=== PATIENT | female | born 1990 | race Hispanic/Latino ===

== ENCOUNTER 2019-03-28 14:27 | Emergency (ER) | payer BC ==
[2019-03-28 15:01] LABS: Bacteria/HPF None Seen HPF (None Seen); Bilirubin Negative (Negative); Blood, Urine Trace (Negative); Clarity Clear (Clear); Glucose, Urine (Dipstick) Normal (Negative); Leukocyte Negative Leu/uL (Negative); Nitrite Negative (Negative); Protein, Urine (Dipstick) Negative (Neg-Trace); RBC/HPF 0-3 HPF (0-3); Urobilinogen Normal mg/dL (Less than 2); WBC/HPF 0-3 HPF (0-3)
[2019-03-28 15:07] LABS: #Eosinphils 0.1 thou/uL (0.0-0.7); #Lymphocytes 1.7 thou/uL (1.20-3.40); #Monocytes 0.4 thou/uL (0.11-0.59); #Neutrophils 5.7 thou/uL (1.40-6.50); %Basophils 0.3 % (0.0-1.0); %Eosinophils 1.1 % (0.0-10.0); %Lymphocytes 21.2 % (21.0-51.0); %Monocytes 4.9 % (0.0-10.0); %Neutrophils 72.6 % (42.0-75.0); Hemoglobin 12.8 g/dL (12.0-16.0); Mean Corpuscular Hemoglobin 31.7 pg (27.0-31.0); Mean Platelet Volume 6.2 fL (7.4-10.4); Platelet Count 364 thou/uL (130-400); RBC Distribution Width 11.8 % (11.5-14.5); Red Blood Cell (RBC) Count 4.04 mill/uL (4.20-5.40); White Blood Cell (WBC) Count 7.9 thou/uL (4.8-10.8)
--- NOTE | 2019-03-28 15:27 | ULT ---
Pelvic ultrasound including transabdominal and endovaginal imaging HISTORY: Pelvic pain. COMPARISON: None. FINDINGS: Real-time imaging of the pelvis was obtained both transabdominally as well as with an endov aginal probe. This shows the presence of an intrauterine gestational sac and pole. Gestational sac measurements are 3.0 cm corresponding to 8 weeks 1 day. [place]-rump length measurement s of 8.6 mm corresponding to 6 weeks 6 days. No movement or heart activity seen. The left ovary is unremarkable. The right ovary is not visualized. Doppler evaluation with spectral analysis normal flow shown to the left adnexa. IMPRESSION: Findings compatible with demise.
[2019-03-28 16:06] LABS: ALT (SGPT) 20 U/L (8-55); AST (SGOT) 20 U/L (5-34); Albumin 4.4 g/dL (3.5-5.0); Alkaline Phosphatase 61 U/L (40-150); Anion Gap 14 mmol/L (10-20); BUN (Urea Nitrogen) 7 mg/dL (7.0-18.7); Bilirubin, Total 0.5 mg/dL (0.2-1.2); Calc. Creatinine Clearance 0 mL/min (70-130); Calcium 10.2 mg/dL (7.8-10.44); Carbon Dioxide 23 mmol/L (22-29); Chloride 103 mmol/L (98-107); Estimated GFR-MDRD Greater than 90; Globulin 3.2 g/dL (2.4-3.5); Glucose 88 mg/dL (70-105); Potassium 4.2 mmol/L (3.5-5.1); Protein, Total 7.6 g/dL (6.0-8.3); Sodium 136 mmol/L (136-145)
[2019-03-31 00:02] LABS: Chlamydia by PCR Not Detected (NotDetected); GC by PCR Not Detected (NotDetected)
== END 2019-03-28 18:00 | disposition home or self-care (01) ==
LOC: ERS 14:27
DX: O02.1 Missed abortion (principal)
CPT/HCPCS: 36415; 76856; 80053; 81003; 81015; 84702; 85025; 86900; 86901; 87480; 87491; 87510; 87591; 87660

== ENCOUNTER 2019-08-16 13:06 | Emergency (ER) | payer BC ==
[2019-08-16 13:57] LABS: #Eosinphils 0.1 thou/uL (0.0-0.7); #Lymphocytes 2.3 thou/uL (1.20-3.40); #Monocytes 0.4 thou/uL (0.11-0.59); #Neutrophils 4.8 thou/uL (1.40-6.50); %Basophils 0.3 % (0.0-1.0); %Eosinophils 0.8 % (0.0-10.0); %Lymphocytes 29.8 % (21.0-51.0); %Monocytes 5.2 % (0.0-10.0); %Neutrophils 63.8 % (42.0-75.0); Hemoglobin 12.4 g/dL (12.0-16.0); Mean Corpuscular HGB CONC 33.7 g/dL (32.0-36.0); Mean Corpuscular Hemoglobin 31.6 pg (27.0-31.0); Mean Corpuscular Volume 93.8 fL (78.0-98.0); Mean Platelet Volume 6.8 fL (7.4-10.4); Platelet Count 350 thou/uL (130-400); RBC Distribution Width 11.9 % (11.5-14.5); Red Blood Cell (RBC) Count 3.94 mill/uL (4.20-5.40); White Blood Cell (WBC) Count 7.6 thou/uL (4.8-10.8)
[2019-08-16 14:02] LABS: Bacteria/HPF None Seen HPF (None Seen); Bilirubin Negative (Negative); Blood, Urine Trace (Negative); Clarity Clear (Clear); Glucose, Urine (Dipstick) Normal (Negative); Leukocyte Negative Leu/uL (Negative); Nitrite Negative (Negative); Protein, Urine (Dipstick) Negative (Neg-Trace); RBC/HPF 0-3 HPF (0-3); Urobilinogen Normal mg/dL (Less than 2); WBC/HPF 0-3 HPF (0-3)
[2019-08-16 14:10] LABS: BHCG - Serum POSITIVE (NEGATIVE); Pregs Control Background? CLEAR/WHITE (CLR/WHITE); Pregs Control Bar Appear? YES (CONTROL BAR)
[2019-08-16 14:18] LABS: ALT (SGPT) 22 U/L (8-55); AST (SGOT) 17 U/L (5-34); Albumin 4.2 g/dL (3.5-5.0); Alkaline Phosphatase 50 U/L (40-110); Anion Gap 11 mmol/L (10-20); BUN (Urea Nitrogen) 7 mg/dL (7.0-18.7); Bilirubin, Total 0.6 mg/dL (0.2-1.2); Calc. Creatinine Clearance 0 mL/min (70-130); Calcium 9.1 mg/dL (7.8-10.44); Carbon Dioxide 22 mmol/L (22-29); Chloride 103 mmol/L (98-107); Estimated GFR-MDRD Greater than 90; Globulin 3.3 g/dL (2.4-3.5); Glucose 88 mg/dL (70-105); Lipase 71 U/L (8-78); Protein, Total 7.5 g/dL (6.0-8.3); Sodium 132 mmol/L (136-145)
--- NOTE | 2019-08-16 15:19 | ULT ---
EXAM: Pelvic ultrasound HISTORY: Pelvic pain in a female COMPARISON: None TECHNIQUE: Multiple grayscale and color Doppler images were obtained in a transabdominal and transvag inal pelvic ultrasound. Spectral analysis of the Doppler waveforms of the ovaries were performed. FINDINGS: UTERUS: There is an intrauterine gestational sac. This contains a yolk sac and pole. [place]-rump length: 0.96 centimeters which estimates gestational age at 7 weeks 0 days. A heart rate is detected at 160 bpm. No evidence of subchorionic hemorrhage. There is a questionable small fibroid in the left aspect of t he uterus measuring 1.8 cm in size. No free fluid is seen in the pelvis. RIGHT OVARY: Normal flow without focal mass. LEFT OVARY: Normal flow without focal mass. IMPRESSION: Single live intrauterine with estimated age of 7 weeks 0 days.
== END 2019-08-16 15:55 | disposition home or self-care (01) ==
LOC: ERS 13:06
DX: O99.89 Other specified diseases and conditions complicating pregnancy, childbirth and the puerperium (principal); R10.9 Unspecified abdominal pain; R11.2 Nausea with vomiting, unspecified; Z3A.01 Less than 8 weeks gestation of pregnancy
CPT/HCPCS: 36415; 76856; 80053; 81003; 81015; 83690; 84702; 84703; 85025; 86900; 86901

== ENCOUNTER 2019-09-06 08:03 | Emergency (ER) | payer BC ==
[2019-09-06] MEDS ORDERED: HYDROcodone/Acetaminophen 5/325 mg Tablet ONE (08:36)
[2019-09-06 08:44] LABS: #Basophils 0.1 thou/uL (0.0-0.2); #Eosinphils 0.1 thou/uL (0.0-0.7); #Lymphocytes 1.7 thou/uL (1.20-3.40); #Monocytes 0.3 thou/uL (0.11-0.59); #Neutrophils 4.5 thou/uL (1.40-6.50); %Basophils 0.9 % (0.0-1.0); %Lymphocytes 25.3 % (21.0-51.0); %Monocytes 5.1 % (0.0-10.0); %Neutrophils 67.7 % (42.0-75.0); Hemoglobin 12.6 g/dL (12.0-16.0); Mean Corpuscular HGB CONC 34.9 g/dL (32.0-36.0); Mean Corpuscular Hemoglobin 32.6 pg (27.0-31.0); Mean Corpuscular Volume 93.4 fL (78.0-98.0); Mean Platelet Volume 6.6 fL (7.4-10.4); Platelet Count 371 thou/uL (130-400); RBC Distribution Width 12.1 % (11.5-14.5); Red Blood Cell (RBC) Count 3.87 mill/uL (4.20-5.40); White Blood Cell (WBC) Count 6.6 thou/uL (4.8-10.8)
[2019-09-06 08:47] LABS: Bilirubin Negative (Negative); Blood, Urine Large (Negative); Glucose, Urine (Dipstick) Negative (Negative); Leukocyte Negative (Negative); Nitrite Negative (Negative); Protein, Urine (Dipstick) > or equal to 300 mg/dL (Neg-Trace); Urobilinogen 0.2 mg/dL (Less than 2)
[2019-09-06 08:48] LABS: Clarity Hazy (Clear)
[2019-09-06 08:51] LABS: Bacteria/HPF 1+ HPF (None Seen); RBC/HPF Greater than 50 HPF (0-3); Squamous Epithelial 0-3 HPF (0-3); WBC/HPF 0-3 HPF (0-3)
--- NOTE | 2019-09-06 09:14 | ULT ---
EXAM: Pelvic ultrasound HISTORY: female with heavy vaginal bleeding starting this morning COMPARISON: None TECHNIQUE: Multiple grayscale and color Doppler images were obtained in a transabdominal pelvic ultra sound. Spectral analysis of the Doppler waveforms of the ovaries were performed. FINDINGS: UTERUS: There is an intrauterine gestational sac. This contains a yolk sac and pole. [place]-rump length: 3.86 cm which estimates gestational age at 10 weeks 5 days. A heart rate is detected at 175 bpm. No evidence of subchorionic hemorrhage. There is a hypoechoic region in the uterus measuring 2.3 cm in size which may represent a small fibro id. No free fluid is seen in the pelvis. RIGHT OVARY: Normal flow without focal mass. LEFT OVARY: Not visualized. IMPRESSION: 1. Single live intrauterine with estimated age of 10 weeks 5 days. 2. Possible uterine fibroid
== END 2019-09-06 09:43 | disposition home or self-care (01) ==
LOC: ERS 08:03
DX: O20.0 Threatened abortion (principal); Z3A.10 10 weeks gestation of pregnancy
CPT/HCPCS: 36415; 76856; 81003; 81015; 84702; 85025; 93976

== ENCOUNTER 2020-03-31 08:15 | Emergency (ER) | payer BC, OTHER ==
[2020-03-31] MEDS ORDERED: Ondansetron PF 4 MG/2 ML Vial ONE (09:07)
[2020-03-31 09:41] LABS: #Lymphocytes 0.9 thou/uL (1.20-3.40); #Monocytes 0.3 thou/uL (0.11-0.59); #Neutrophils 4.5 thou/uL (1.40-6.50); %Eosinophils 0.2 % (0.0-10.0); %Lymphocytes 15.5 % (21.0-51.0); %Monocytes 5.4 % (0.0-10.0); %Neutrophils 78.9 % (42.0-75.0); Hemoglobin 13.9 g/dL (12.0-16.0); Mean Corpuscular HGB CONC 33.2 g/dL (32.0-36.0); Mean Corpuscular Volume 93.4 fL (78.0-98.0); Mean Platelet Volume 6.8 fL (7.4-10.4); Platelet Count 361 thou/uL (130-400); RBC Distribution Width 11.8 % (11.5-14.5); Red Blood Cell (RBC) Count 4.49 mill/uL (4.20-5.40); White Blood Cell (WBC) Count 5.7 thou/uL (4.8-10.8)
[2020-03-31 09:46] LABS: BHCG - Serum Negative (NEGATIVE); Pregs Control Background? CLEAR/WHITE (CLR/WHITE); Pregs Control Bar Appear? YES (CONTROL BAR)
[2020-03-31 10:02] LABS: ALT (SGPT) 25 U/L (8-55); AST (SGOT) 29 U/L (5-34); Albumin 4.3 g/dL (3.5-5.0); Alkaline Phosphatase 71 U/L (40-110); Anion Gap 13 mmol/L (10-20); BUN (Urea Nitrogen) 6 mg/dL (7.0-18.7); Bilirubin, Total 0.6 mg/dL (0.2-1.2); Calc. Creatinine Clearance 0 mL/min (70-130); Calcium 8.6 mg/dL (7.8-10.44); Carbon Dioxide 24 mmol/L (22-29); Chloride 104 mmol/L (98-107); Estimated GFR-MDRD 89; Globulin 4.2 g/dL (2.4-3.5); Glucose 97 mg/dL (70-105); Lipase 23 U/L (8-78); Potassium 3.6 mmol/L (3.5-5.1); Protein, Total 8.5 g/dL (6.0-8.3); Sodium 137 mmol/L (136-145)
[2020-03-31 19:58] LABS: SARS-CoV-2 MS2 Positive; SARS-CoV-2 N Gene Negative; SARS-CoV-2 S Gene Negative; SARS-CoV-2 orf1ab Negative
== END 2020-03-31 12:06 | disposition home or self-care (01) ==
LOC: ERS 08:15
DX: R19.7 Diarrhea, unspecified (principal); R11.0 Nausea; R10.11 Right upper quadrant pain; M79.10 Myalgia, unspecified site; R53.83 Other fatigue; Z20.828 Contact with and (suspected) exposure to other viral communicable diseases
CPT/HCPCS: 80053; 83630; 83690; 84703; 85025; 87045; 87046; 87324; 87328; 87329; 87427; 87449; 87635; 96361; 96372; 96374; J0500; J2405; U0003

== ENCOUNTER 2020-04-10 07:32 | Emergency (ER) | payer BC, OTHER ==
[2020-04-10 08:54] LABS: #Lymphocytes 1.6 thou/uL (1.20-3.40); #Monocytes 0.3 thou/uL (0.11-0.59); #Neutrophils 3.6 thou/uL (1.40-6.50); %Basophils 0.5 % (0.0-1.0); %Eosinophils 0.8 % (0.0-10.0); %Lymphocytes 28.5 % (21.0-51.0); %Monocytes 5.7 % (0.0-10.0); %Neutrophils 64.5 % (42.0-75.0); Hemoglobin 13.3 g/dL (12.0-16.0); Mean Corpuscular HGB CONC 33.8 g/dL (32.0-36.0); Mean Corpuscular Hemoglobin 31.2 pg (27.0-31.0); Mean Corpuscular Volume 92.2 fL (78.0-98.0); Mean Platelet Volume 6.6 fL (7.4-10.4); Platelet Count 406 thou/uL (130-400); RBC Distribution Width 11.8 % (11.5-14.5); Red Blood Cell (RBC) Count 4.28 mill/uL (4.20-5.40); White Blood Cell (WBC) Count 5.6 thou/uL (4.8-10.8)
[2020-04-10 09:04] LABS: BHCG - Serum Negative (NEGATIVE); Pregs Control Background? CLEAR/WHITE (CLR/WHITE); Pregs Control Bar Appear? YES (CONTROL BAR)
[2020-04-10 09:18] LABS: ALT (SGPT) 76 U/L (8-55); AST (SGOT) 43 U/L (5-34); Albumin 4.1 g/dL (3.5-5.0); Alkaline Phosphatase 76 U/L (40-110); Anion Gap 10 mmol/L (10-20); BUN (Urea Nitrogen) 9 mg/dL (7.0-18.7); Bilirubin, Total 0.9 mg/dL (0.2-1.2); Calc. Creatinine Clearance 0 mL/min (70-130); Calcium 9.1 mg/dL (7.8-10.44); Carbon Dioxide 27 mmol/L (22-29); Chloride 104 mmol/L (98-107); Estimated GFR-MDRD 89; Globulin 3.5 g/dL (2.4-3.5); Glucose 93 mg/dL (70-105); Lipase 25 U/L (8-78); Potassium 3.5 mmol/L (3.5-5.1); Protein, Total 7.6 g/dL (6.0-8.3); Sodium 137 mmol/L (136-145)
[2020-04-10] MEDS ORDERED: Ketorolac Tromethamine 30 MG/ML VIAL ONE (09:24)
--- NOTE | 2020-04-10 09:29 | ULT ---
US Gallbladder RUQ History: Right upper quadrant abdominal pain Comparison: Ultrasound 2017 Findings: Real-time grayscale and color evaluation right upper quadrant of the abdomen was performed. Visualized portion of the aorta, IVC and pancreas unremarkable. Hepatic echotexture is normal. Portal vein is patent with antegrade flow. Common bile duct measures 2 mm, normal. Cholelithiasis without cholecystitis. No gallbladder wall thickening. No pericholecystic fluid. Right kidney measures 9.2 x 4.6 x 5.8 cm without mass, hydronephrosis or abnormal calcifications. Impression: Cholelithiasis without cholecystitis.
[2020-04-10] MEDS ORDERED: Ketorolac Tromethamine 30 MG/ML VIAL IVP SCH (09:30)
[2020-04-10 10:23] LABS: Bacteria/HPF None Seen HPF (None Seen); Bilirubin Negative (Negative); Blood, Urine Trace (Negative); Clarity Clear (Clear); Glucose, Urine (Dipstick) Normal (Negative); Ketone, Urine Trace mg/dL (Negative); Leukocyte 75 Leu/uL (Negative); Nitrite Negative (Negative); Protein, Urine (Dipstick) 20 mg/dL (Neg-Trace); RBC/HPF 0-3 HPF (0-3); Specific Gravity, Urine 1.023 (1.002-1.036); Squamous Epithelial 0-3 HPF (0-3)
[2020-04-11 13:55] LABS: SARS-CoV-2 MS2 Positive; SARS-CoV-2 N Gene Negative; SARS-CoV-2 S Gene Negative; SARS-CoV-2 by NAA Not Detected (NotDetected); SARS-CoV-2 orf1ab Negative
== END 2020-04-10 10:00 | disposition home or self-care (01) ==
LOC: ERS 07:32
DX: R19.7 Diarrhea, unspecified (principal); R11.0 Nausea; Z20.828 Contact with and (suspected) exposure to other viral communicable diseases
CPT/HCPCS: 36415; 76705; 80053; 81003; 81015; 83690; 84703; 85025; 87045; 87046; 87086; 87324; 87328; 87329; 87427; 87449; 87635; 96361; 96374; J1885; U0003

== ENCOUNTER 2020-06-23 07:59 | Emergency (ER) | payer BC ==
[2020-06-23 08:39] LABS: #Lymphocytes 1.7 thou/uL (1.20-3.40); #Monocytes 0.4 thou/uL (0.11-0.59); %Basophils 0.5 % (0.0-1.0); %Eosinophils 0.4 % (0.0-10.0); %Lymphocytes 21.1 % (21.0-51.0); %Monocytes 4.4 % (0.0-10.0); %Neutrophils 73.6 % (42.0-75.0); Hemoglobin 13.5 g/dL (12.0-16.0); Mean Corpuscular HGB CONC 32.9 g/dL (32.0-36.0); Mean Corpuscular Hemoglobin 30.5 pg (27.0-31.0); Mean Corpuscular Volume 92.8 fL (78.0-98.0); Mean Platelet Volume 6.6 fL (7.4-10.4); Platelet Count 402 thou/uL (130-400); RBC Distribution Width 12.5 % (11.5-14.5); Red Blood Cell (RBC) Count 4.43 mill/uL (4.20-5.40); White Blood Cell (WBC) Count 8.1 thou/uL (4.8-10.8)
[2020-06-23 09:00] LABS: ALT (SGPT) 17 U/L (8-55); AST (SGOT) 24 U/L (5-34); Albumin 4.4 g/dL (3.5-5.0); Alkaline Phosphatase 58 U/L (40-110); Anion Gap 10 mmol/L (10-20); BUN (Urea Nitrogen) 12 mg/dL (7.0-18.7); Bilirubin, Total 0.9 mg/dL (0.2-1.2); Calc. Creatinine Clearance 0 mL/min (70-130); Carbon Dioxide 24 mmol/L (22-29); Chloride 105 mmol/L (98-107); Estimated GFR-MDRD 71; Globulin 3.9 g/dL (2.4-3.5); Glucose 102 mg/dL (70-105); Lipase 14 U/L (8-78); Potassium 3.8 mmol/L (3.5-5.1); Protein, Total 8.3 g/dL (6.0-8.3); Sodium 135 mmol/L (136-145)
[2020-06-23 09:10] LABS: Bilirubin Negative (Negative); Blood, Urine 1+ (Negative); Clarity Clear (Clear); Glucose, Urine (Dipstick) Normal (Negative); Ketone, Urine 10 mg/dL (Negative); Leukocyte Negative Leu/uL (Negative); Nitrite Negative (Negative); Protein, Urine (Dipstick) Negative (Neg-Trace); Specific Gravity, Urine 1.011 (1.002-1.036); Squamous Epithelial 0-3 HPF (0-3); Urobilinogen Normal mg/dL (Less than 2); pH, Urine 5.5 (5.0-9.0)
[2020-06-23 09:11] LABS: Bacteria/HPF 1+ HPF (None Seen)
--- NOTE | 2020-06-23 09:23 | ULT ---
PELVIC ULTRASOUND: Date: 06/23/2020 INDICATION: Pelvic pain. Transabdominal and endovaginal ultrasound of pelvis performed. FINDINGS: The uterus appears unremarkable. No evidence of intrauterine . Endometrium measured at appro ximately 1.0 cm. Both ovaries are identified and appear unremarkable. Color Doppler and spectral analysis demonstrate blood flow to both ovaries. There is a small amount of free fluid in the cul-de-sac. IMPRESSION: Small amount of free fluid in the cul-de-sac. Pelvic ultrasound otherwise unremarkable. POS: AH
[2020-06-23] MEDS ORDERED: Acetaminophen 325 MG TAB ONE ×2 (09:29→09:30)
[2020-06-23] MEDS ORDERED: cefTRIAXone\\ROCEPHIN 1 GM VIAL ONE (09:57)
[2020-06-24 20:00] LABS: Chlamydia by PCR Not Detected (NotDetected); GC by PCR Not Detected (NotDetected)
== END 2020-06-23 10:40 | disposition home or self-care (01) ==
LOC: ERS 07:59
DX: O23.01 Infections of kidney in pregnancy, first trimester (principal)
CPT/HCPCS: 76856; 80053; 81003; 81015; 83690; 84702; 85025; 86900; 86901; 87086; 87480; 87491; 87510; 87591; 87660; 96365; J0696

== ENCOUNTER 2021-05-15 17:46 | Emergency (ER) | payer BC, SELFPAY ==
[2021-05-15] MEDS ORDERED: Morphine 4 MG/ML VIAL ONE ×2 (18:16→19:34)
[2021-05-15] MEDS ORDERED: Ondansetron PF 4 MG/2 ML Vial ONE ×2 (18:17→18:18)
[2021-05-15] MEDS ORDERED: Ketorolac Tromethamine 30 MG/ML VIAL ONE (18:17)
[2021-05-15 18:43] LABS: #Eosinphils 0.1 thou/uL (0.0-0.7); #Lymphocytes 1.8 thou/uL (1.20-3.40); #Monocytes 0.3 thou/uL (0.11-0.59); #Neutrophils 4.7 thou/uL (1.40-6.50); %Basophils 0.4 % (0.0-1.0); %Eosinophils 0.8 % (0.0-10.0); %Lymphocytes 26.1 % (21.0-51.0); %Monocytes 4.5 % (0.0-10.0); %Neutrophils 68.2 % (42.0-75.0); Hemoglobin 13.1 g/dL (12.0-16.0); Mean Corpuscular HGB CONC 33.8 g/dL (32.0-36.0); Mean Corpuscular Hemoglobin 30.8 pg (27.0-31.0); Mean Corpuscular Volume 90.9 fL (78.0-98.0); Mean Platelet Volume 6.2 fL (7.4-10.4); Platelet Count 410 thou/uL (130-400); RBC Distribution Width 13.5 % (11.5-14.5); Red Blood Cell (RBC) Count 4.26 mill/uL (4.20-5.40); White Blood Cell (WBC) Count 6.9 thou/uL (4.8-10.8)
[2021-05-15 19:02] LABS: ALT (SGPT) 43 U/L (8-55); AST (SGOT) 28 U/L (5-34); Albumin 4.2 g/dL (3.5-5.0); Alkaline Phosphatase 62 U/L (40-110); Anion Gap 13 mmol/L (10-20); BUN (Urea Nitrogen) 6 mg/dL (7.0-18.7); Bilirubin, Total 0.6 mg/dL (0.2-1.2); Calc. Creatinine Clearance 0 mL/min (70-130); Calcium 9.7 mg/dL (7.8-10.44); Carbon Dioxide 23 mmol/L (22-29); Chloride 106 mmol/L (98-107); Globulin 4.2 g/dL (2.4-3.5); Glucose 84 mg/dL (70-105); Potassium 3.6 mmol/L (3.5-5.1); Protein, Total 8.4 g/dL (6.0-8.3); Sodium 138 mmol/L (136-145)
[2021-05-15 20:17] LABS: Pregnancy Test - Urine (BHCG) POSITIVE (Negative); Pregu Control Background? CLEAR/WHITE (CLR/WHITE); Pregu Control Bar Appear? YES (CONTROL BAR); Specific Gravity 1.028 (1.002-1.036)
[2021-05-15 20:21] LABS: Bilirubin Negative (Negative); Blood, Urine 3+ (Negative); Clarity Extra Turbid (Clear); Glucose, Urine (Dipstick) Normal (Negative); Ketone, Urine Negative (Negative); Leukocyte Negative Leu/uL (Negative); Nitrite Negative (Negative); Protein, Urine (Dipstick) 200 mg/dL (Neg-Trace); RBC/HPF Greater than 50 HPF (0-3); Specific Gravity, Urine 1.028 (1.002-1.036); Urobilinogen Normal mg/dL (Less than 2)
[2021-05-15 20:24] LABS: Bacteria/HPF 1+ HPF (None Seen); Squamous Epithelial 0-3 HPF (0-3)
== END 2021-05-15 22:07 | disposition home or self-care (01) ==
LOC: ERS 17:46
DX: O99.611 Diseases of the digestive system complicating pregnancy, first trimester (principal); O23.41 Unspecified infection of urinary tract in pregnancy, first trimester; Z3A.01 Less than 8 weeks gestation of pregnancy
CPT/HCPCS: 76705; 76856; 80053; 81003; 81015; 81025; 84702; 85025; 86900; 86901; 96374; 96375; 96376; J1885; J2270; J2405

== ENCOUNTER 2021-05-19 08:11 | Emergency (ER) | payer SELFPAY ==
[2021-05-19 08:43] LABS: #Eosinphils 0.1 thou/uL (0.0-0.7); #Lymphocytes 1.7 thou/uL (1.20-3.40); #Monocytes 0.3 thou/uL (0.11-0.59); #Neutrophils 5.1 thou/uL (1.40-6.50); %Basophils 0.3 % (0.0-1.0); %Eosinophils 1.2 % (0.0-10.0); %Lymphocytes 24.2 % (21.0-51.0); %Monocytes 4.2 % (0.0-10.0); %Neutrophils 70.2 % (42.0-75.0); Mean Corpuscular HGB CONC 33.4 g/dL (32.0-36.0); Mean Corpuscular Hemoglobin 30.9 pg (27.0-31.0); Mean Corpuscular Volume 92.4 fL (78.0-98.0); Mean Platelet Volume 6.4 fL (7.4-10.4); Platelet Count 472 thou/uL (130-400); RBC Distribution Width 13.3 % (11.5-14.5); Red Blood Cell (RBC) Count 4.23 mill/uL (4.20-5.40); White Blood Cell (WBC) Count 7.2 thou/uL (4.8-10.8)
[2021-05-19 09:04] LABS: ALT (SGPT) 38 U/L (8-55); AST (SGOT) 18 U/L (5-34); Albumin 4.4 g/dL (3.5-5.0); Alkaline Phosphatase 73 U/L (40-110); Anion Gap 13 mmol/L (10-20); BUN (Urea Nitrogen) 8 mg/dL (7.0-18.7); Bilirubin, Total 0.7 mg/dL (0.2-1.2); Calc. Creatinine Clearance 0 mL/min (70-130); Calcium 9.7 mg/dL (7.8-10.44); Carbon Dioxide 24 mmol/L (22-29); Chloride 106 mmol/L (98-107); Globulin 4.3 g/dL (2.4-3.5); Glucose 97 mg/dL (70-105); Lipase 22 U/L (8-78); Potassium 3.4 mmol/L (3.5-5.1); Protein, Total 8.7 g/dL (6.0-8.3); Sodium 140 mmol/L (136-145)
[2021-05-19] MEDS ORDERED: Fentanyl 100 MCG/2 ML VIAL ONE (11:22)
[2021-05-19] MEDS ORDERED: Ondansetron ODT 4 MG TAB ONE (11:22)
[2021-05-19] MEDS ORDERED: Ketorolac Tromethamine 30 MG/ML VIAL ONE (11:22)
[2021-05-19 11:58] LABS: Bilirubin Negative (Negative); Blood, Urine 3+ (Negative); Clarity Turbid (Clear); Glucose, Urine (Dipstick) Normal (Negative); Ketone, Urine 80 mg/dL (Negative); Leukocyte 75 Leu/uL (Negative); Nitrite Negative (Negative); Protein, Urine (Dipstick) 50 mg/dL (Neg-Trace); RBC/HPF 21-50 HPF (0-3); Specific Gravity, Urine 1.027 (1.002-1.036); Squamous Epithelial 21-50 HPF (0-3)
[2021-05-19 12:00] LABS: Bacteria/HPF Rare-Few HPF (None Seen)
== END 2021-05-19 12:05 | disposition home or self-care (01) ==
LOC: ERS 08:11
DX: K80.20 Calculus of gallbladder without cholecystitis without obstruction (principal)
CPT/HCPCS: 36415; 80053; 81003; 81015; 83690; 85025; 96372; 99284; J1885; J3010; Q0162

== ENCOUNTER 2024-06-11 01:30 | Emergency (ER) | payer SELFPAY ==
[2024-06-11] MEDS ORDERED: Morphine 4 MG/ML VIAL ONE (01:50)
[2024-06-11] MEDS ORDERED: Ketorolac Tromethamine 30 MG (1 mL) VIAL ONE (02:15)
[2024-06-11] MEDS ORDERED: Boostrix 0.5 ML (Tdap) VIAL (>/=7 yrs of age) ONE (02:17)
== END 2024-06-11 02:20 | disposition home or self-care (01) ==
LOC: ERS 01:30
DX: S61.451A Open bite of right hand, initial encounter (principal); Z55.6 Problems related to health literacy; W54.0XXA Bitten by dog, initial encounter
CPT/HCPCS: 90471; 90715; 96374; 96375; J1885; J2272

== ENCOUNTER 2025-06-25 09:21 | Emergency (ER) | payer SELFPAY ==
[2025-06-25] MEDS ORDERED: Ondansetron PF 4 MG/2 ML Vial ONE (09:55)
[2025-06-25 10:33] LABS: #Basophils Less than 0.03 10x3/uL (0.0-0.2); #Eosinophils 0.10 10x3/uL (0.0-0.7); #Monocytes 0.29 10x3/uL (0.11-0.59); #Neutrophils 6.41 10x3/uL (1.40-6.50); %Basophils 0.2 % (0.0-1.0); %Eosinophils 1.2 % (0.0-10.0); %Lymphocytes 19.5 % (21.0-51.0); %Monocytes 3.4 % (0.0-10.0); %Neutrophils 75.1 % (42.0-75.0); Hematocrit 41.6 % (36.0-47.0); Hemoglobin 13.4 g/dL (12.0-16.0); Mean Corpuscular Hemoglobin 30.7 pg (27.0-31.0); Mean Corpuscular Volume 95.2 fL (78.0-98.0); Platelet Count 381 10x3/uL (130-400); Red Blood Cell (RBC) Count 4.37 mill/uL (4.20-5.40); White Blood Cell (WBC) Count 8.53 10x3/uL (4.8-10.8)
[2025-06-25 10:41] LABS: BHCG - Serum Negative (NEGATIVE); Pregs Control Bar Appear? YES (CONTROL BAR)
[2025-06-25 10:42] LABS: Pregs Control Background? CLEAR/WHITE (CLR/WHITE)
[2025-06-25 10:47] LABS: INR-International Normal Ratio 0.9; PTT 28.7 sec (22.9-36.1); Prothrombin Time 12.7 sec (12.0-14.7)
[2025-06-25 11:08] LABS: ALT (SGPT) 21 U/L (Less than 34); AST (SGOT) 40 U/L (11-34); Albumin 4.1 g/dL (3.1-4.5); Alkaline Phosphatase 68 U/L (40-110); Anion Gap 13 mmol/L (10-20); BUN (Urea Nitrogen) 10 mg/dL (7.0-18.7); Bilirubin, Total 0.9 mg/dL (0.3-1.2); Calc. Creatinine Clearance 0 mL/min (70-130); Calcium 9.8 mg/dL (7.8-10.44); Carbon Dioxide 25 mmol/L (22-29); Chloride 104 mmol/L (98-107); Globulin 4.4 g/dL (2.4-3.5); Glucose 98 mg/dL (70-105); Lipase 29 U/L (8-78); Potassium 4.1 mmol/L (3.5-5.1); Sodium 138 mmol/L (136-145)
[2025-06-25 11:49] LABS: Bacteria/HPF 1+ HPF (None Seen); CAUTI Indications for Culture Dysuria,urgency,freq; Glucose, Urine (Dipstick) Normal (Negative); Leukocyte Negative Leu/uL (Negative); Protein, Urine (Dipstick) Negative (Neg-Trace); RBC/HPF 21-50 HPF (0-3); Specific Gravity, Urine 1.008 (1.002-1.036); WBC/HPF 0-3 HPF (0-3)
[2025-06-25 11:52] LABS: Urine Culture Reflex No No
[2025-06-25 11:53] LABS: Cocaine Metabolite Screen Negative (Negative); THC/Cannabinoid Screen PRELIM POSITIVE (Negative); Tricyclic Screen Negative (Negative)
== END 2025-06-25 12:48 | disposition home or self-care (01) ==
LOC: ERS 09:21
DX: M79.10 Myalgia, unspecified site (principal); F17.200 Nicotine dependence, unspecified, uncomplicated; V49.40XA Driver injured in collision with unspecified motor vehicles in traffic accident, initial encounter
CPT/HCPCS: 70450; 71260; 72125; 74177; 80053; 80306; 80307; 81001; 83690; 84484; 84703; 85025; 85610; 85730; 86850; 86900; 86901; 93005; 94760; 96374; 96375; J2270; J3010